=== PATIENT | female | born 1990 | race American Indian/Alaskan Native ===

== ENCOUNTER 2018-04-07 19:45 | Inpatient (IN) | payer OTHER ==
[~2018-04-07] VITALS: Ht 157.5 cm; Wt 80.7 kg
[2018-04-07] MEDS ORDERED: PRENATAL TABLE1 EAC1 PO (22:53)
[2018-04-07] MEDS ORDERED: IRON18 MG PO (22:54)
== END 2018-04-10 14:09 | disposition home or self-care (01) | DRG 807 ==
LOC: OBS/DEL 19:45 → OB/GYN 04-08 07:55 → OBS/DEL 04-08 07:55 → LDR 04-08 07:55 → OB/GYN 04-08 21:38
PROC: 10E0XZZ Delivery of Products of Conception, External Approach (ICD-10-PCS; principal; 2018-04-08)
PROC: 0KQM0ZZ Repair Perineum Muscle, Open Approach (ICD-10-PCS; 2018-04-08)
PROC: 3E033VJ Introduction of Other Hormone into Peripheral Vein, Percutaneous Approach (ICD-10-PCS; 2018-04-08)
PROC: 4A1HXCZ Monitoring of Products of Conception, Cardiac Rate, External Approach (ICD-10-PCS; 2018-04-08)
DX: O70.1 Second degree perineal laceration during delivery (principal); Z37.0 Single live birth; Z3A.38 38 weeks gestation of pregnancy

== ENCOUNTER 2022-02-05 19:40 | Outpatient (CLI) | payer OTHER ==
[~2022-02-05 19:40] MED LIST: IRON18 MG PO; PRENATAL TABLE1 EAC1 PO
[2022-02-05] MEDS ORDERED: PRENATAL CAPLE1 EAC1 PO (23:58)
== END 2022-02-06 12:25 | disposition home or self-care (01) ==
LOC: OBS/DEL 19:40
PROVIDERS: ATTEND Obstetrics & Gynecology
DX: O60.02 Preterm labor without delivery, second trimester (principal); Z3A.24 24 weeks gestation of pregnancy

== ENCOUNTER 2022-05-17 12:17 | Inpatient (IN) | payer OTHER ==
[~2022-05-17] VITALS: Ht 157.5 cm; Wt 79.8 kg
[~2022-05-17 12:17] MED LIST changes: +PRENATAL CAPLE1 EAC1 PO
== END 2022-05-20 12:43 | disposition home or self-care (01) | DRG 807 ==
LOC: OBS/DEL 12:17 → LDR 16:43 → OB/GYN 05-18 15:26
PROVIDERS: ADMIT Obstetrics & Gynecology; ATTEND Obstetrics & Gynecology
PROC: 10E0XZZ Delivery of Products of Conception, External Approach (ICD-10-PCS; principal; 2022-05-17)
PROC: 0HQ9XZZ Repair Perineum Skin, External Approach (ICD-10-PCS; 2022-05-17)
PROC: 4A1HXCZ Monitoring of Products of Conception, Cardiac Rate, External Approach (ICD-10-PCS; 2022-05-17)
DX: O70.1 Second degree perineal laceration during delivery (principal); Z37.0 Single live birth; Z3A.39 39 weeks gestation of pregnancy; Z20.822 Contact with and (suspected) exposure to COVID-19